=== PATIENT | male | born 1940 | race Caucasian/White ===

== ENCOUNTER 2022-12-19 08:15 | Outpatient (RCR) | payer MEDICARE, BC, SELFPAY | END 2023-03-17 10:30 | disposition home or self-care (01) | PROVIDERS: PCP Family Medicine; Visit Provider Physician Assistant | DX: C93.10 Chronic myelomonocytic leukemia not having achieved remission (principal); R53.1 Weakness; Z51.89 Encounter for other specified aftercare | CPT/HCPCS: 97110; 97162 ==